=== PATIENT | male | born 1960 | race African-American/Black ===

== ENCOUNTER 2016-09-03 22:13 | Observation (INO) | payer SELFPAY ==
[~2016-09-03] VITALS: Ht 180.3 cm; Wt 114.0 kg
[~2016-09-03 22:13] MED LIST: ALBU6.7H INH; AMOX875T PO; CHLO.12%30 SSP; LISI30TA44 PO; PRED20 PO; TRAM50 PO
[2016-09-03 22:17] VITALS: BP_SYST 213; BP_SYST 228; BP_DIAS 128; BP_DIAS 143; PULSE 94; RESP 18; TEMP 98.6; O2SAT 99
[2016-09-03] MEDS ORDERED: LISI-515 PO (22:35)
[2016-09-03] MEDS ORDERED: ASPIRIN 81 MG CHEW TAB PO ONE (22:45)
[2016-09-03] MEDS ORDERED: SODIUM CHLORIDE 0.9% FLUSH 5 ML FLUSH IVF PRN (22:45)
[2016-09-03] MEDS ORDERED: NITROGLYCERIN 2% OINT 1 GM PACKET TOP ONE (22:45)
--- NOTE | 2016-09-03 23:01 | RADRPT ---
EXAM DATE/TIME: 09/03/2016 22:47 [facility] COMPARISON: No previous studies available for comparison. INDICATIONS : Left side chest pain and left arm numbness since yesterday. MEDICAL HISTORY : None. SURGICAL HISTORY : None. ENCOUNTER: Initial ACUITY: 2 days PAIN SCORE: 4/10 LOCATION: Left chest FINDINGS: The lungs are underaerated but clear. Heart and pulmonary vascularity are normal. Portion of the rosie ny skeleton visualized is unremarkable. CONCLUSION: Underaerated otherwise negative. Sebas Patino MD FACR on September 03, 2016 at 22:55 Board Certified Radiologist. This report was verified electronically.
--- NOTE | 2016-09-03 23:02 | PD ---
HPI Chief Complaint: Cardiac Complaint Time Seen by Provider: 22:25 Travel History International Travel<30 days: No Contact w/Intl Traveler<30days: No Traveled to known affect area: No History of Present Illness HPI The patient is a 56 year old male who presents to the [facility] emergency department with a history of left hand numbness associated with a tightening sensation in the left arm that began this morning. He reports that the aching sensation seemed to move around into his left shoulder and then even into his left sole of his foot. The patient reports that the left shoulder pain seemed to radiate up into the left side of his back. The patient denies having any associated shortness of breath. The patient reports that he does have a history of hypertension. He denies having any known history of hyperlipidemia or tobacco use. The patient is followed by a primary care physician that he cannot recall the name of. He reports that he last had a stress test done 3 years ago in [place]. He denies having any history of coronary artery disease. The patient denies having any weakness in his extremities. He denies having any headache. He denies having any diaphoresis or nausea associated with this. The patient denies any recent fevers, cough, congestion, chest pain, shortness of breath, abdominal pain, vomiting, diarrhea, urinary symptoms, or neurologic symptoms. [facility] Past Medical History Narrative Medical The patient's past medical history is significant for chronic back pain with bilateral intermittent sciatica, hypertension. Hypertension: Yes Tetanus Vaccination: Unknown Influenza Vaccination: No Past Surgical History Narrative Surgical The patient's past surgical history is significant for a right Achilles tendon repair. Surgical History: No Previous Surgery Social History Alcohol Use: No Tobacco Use: No Substance Use: No Allergies-Medications (Allergen,Severity, Reaction): Coded Allergies: No Known Allergies (Unverified , 09/03/16) Reported Meds & Prescriptions Reported Meds & Active Scripts Active Reported Lisinopril 20 Mg Tab 20 Mg PO BID Review of Systems Except as stated in HPI: all other systems reviewed are Neg General / Constitutional: No: Fever Eyes: No: Visual changes HENT: Positive: Neck Pain, No: Headaches, Rhinorrhea, Congestion, Neck Stiffness Cardiovascular: No: Chest Pain or Discomfort Respiratory: No: Cough, Shortness of Breath Gastrointestinal: No: Nausea, Vomiting, Diarrhea, Abdominal Pain, Changes in Bowel Habits, Indigestion, Loss of Appetite Genitourinary: No: Dysuria Musculoskeletal: Positive: Myalgias, Pain Skin: No Rash Neurologic: Positive: Sensory Disturbance (left hand), No: Weakness, Focal Abnormalities, Coordination Problem, Change in Mentation, Slurred Speech Psychiatric: No: Depression Endocrine: No: Polydipsia Hematologic/Lymphatic: No: Easy Bruising Physical Exam Narrative General: The patient is a well-developed well-nourished male in no acute distress. Head and Neck exam: Head is normocephalic atraumatic. Eyes: EOMI, pupils are equal round and reactive to light. Nose: Midline septum with pink mucous membranes Mouth: Dentition unremarkable. Moist mucus membranes. Posterior oropharynx is not erythematous. No tonsillar hypertrophy. Uvula midline. Airway patent. Neck: No palpable lymphadenopathy. No nuchal rigidity. No thyromegaly. Cardiovascular: Regular rate and rhythm without murmurs, gallops, or rubs. No pulse deficit to the extremities and simultaneous auscultation and palpation of his radial artery. Lungs: Clear to auscultation bilaterally. No wheezes, rhonchi, or rales. Abdomen: Soft, without tenderness to palpation in all 4 quadrants of the abdomen. No guarding, rebound, or rigidity. Normal bowel sounds are audible. Extremities: No clubbing, cyanosis, or edema. 2+ pulses in all 4 extremities. No calf tenderness on palpation. Back: No spinous process tenderness to palpation. No costovertebral angle tenderness to palpation. Neurologic Exam: Cranial nerves 2-12 were intact on exam. Strength is 5/5 in all 4 extremities. No sensory deficits noted on examination currently. Skin Exam: No rash noted. Intact skin that is warm and dry. Data Data Last Documented VS Vital Signs Date Time Temp Pulse Resp B/P Pulse Ox O2 Delivery O2 Flow Rate FiO2 09/03/16 23:14 95 16 161/101 98 Room Air 09/03/16 22:17 98.6 Orders Electrocardiogram (09/03/16 22:35) B-Type Natriuretic Peptide (09/03/16 22:35) Ckmb (Isoenzyme) Profile (09/03/16 22:35) Complete Blood Count With Diff (09/03/16 22:35) Comprehensive Metabolic Panel (09/03/16 22:35) Magnesium (Mg) (09/03/16 22:35) Prothrombin Time / Inr (Pt) (09/03/16 22:35) Act Partial Throm Time (Ptt) (09/03/16 22:35) Troponin I (09/03/16 22:35) Lipase (09/03/16 22:35) Chest, Single Ap (09/03/16 22:35) Ecg Monitoring (09/03/16 22:35) Bilateral Bp Monitoring (09/03/16 22:35) Iv Access Insert/Monitor (09/03/16 22:35) Oximetry (09/03/16 22:35) Oxygen Administration (09/03/16 22:35) Aspirin Chew (Aspirin Chew) (09/03/16 22:45) Nitroglycerin 2% Oint (Nitroglycerin 2% (09/03/16 22:45) Sodium Chloride 0.9% Flush (Ns Flush) (09/03/16 22:45) Nitroglycerin Sl (Nitrostat Sl) (09/03/16 22:45) Ct Brain W/O Iv Contrast(Rout) (09/03/16 22:35) Ct Cerv Spine W/O Contrast (09/03/16 22:46) CKMB (09/03/16 23:00) CKMB% (09/03/16 23:00) Place In Observation (09/04/16 00:05) Activity Bed Rest With Brp (09/04/16 00:05) Vital Signs (Adult) Q4H (09/04/16 00:05) Cardiac Rhythm .As Directed (09/04/16 00:05) ^ Notify Dr: Other .PRN (09/04/16 00:05) ^ Notify Dr. Parameters (09/04/16 00:05) Resp Oxygen Nasal Cannula (09/04/16 ) Ckmb (Isoenzyme) Profile (09/04/16 02:00) Ckmb (Isoenzyme) Profile (09/04/16 05:00) Troponin I (09/04/16 02:00) Troponin I (09/04/16 05:00) Electrocardiogram (09/04/16 02:00) Electrocardiogram (09/04/16 05:00) ^ Obtain (09/04/16 00:05) Sodium Chloride 0.9% Flush (Ns Flush) (09/04/16 00:15) Sodium Chloride 0.9% Flush (Ns Flush) (09/04/16 09:00) Acetaminophen (Tylenol) (09/04/16 00:15) Pantoprazole (Protonix) (09/04/16 09:00) Lisinopril (Prinivil) (09/04/16 09:00) Nitroglycerin 2% Oint (Nitroglycerin 2% (09/04/16 06:00) Aspirin (Aspirin) (09/04/16 09:00) Admit Order (Ed Use Only) (09/04/16 00:05) Labs Laboratory Tests Test 09/03/16 23:00 White Blood Count 7.9 TH/MM3 Red Blood Count 5.10 MIL/MM3 Hemoglobin 13.7 GM/DL Hematocrit 41.3 % Mean Corpuscular Volume 81.0 FL Mean Corpuscular Hemoglobin 26.9 PG Mean Corpuscular Hemoglobin 33.1 % Concent Red Cell Distribution Width 15.7 % Platelet Count 266 TH/MM3 Mean Platelet Volume 9.0 FL Neutrophils (%) (Auto) 59.0 % Lymphocytes (%) (Auto) 30.9 % Monocytes (%) (Auto) 7.2 % Eosinophils (%) (Auto) 2.1 % Basophils (%) (Auto) 0.8 % Neutrophils # (Auto) 4.7 TH/MM3 Lymphocytes # (Auto) 2.4 TH/MM3 Monocytes # (Auto) 0.6 TH/MM3 Eosinophils # (Auto) 0.2 TH/MM3 Basophils # (Auto) 0.1 TH/MM3 CBC Comment DIFF FINAL Differential Comment Prothrombin Time 10.7 SEC Prothromb Time International 1.0 RATIO Ratio Activated Partial 29.2 SEC Thromboplast Time Sodium Level 141 MEQ/L Potassium Level 3.6 MEQ/L Chloride Level 106 MEQ/L Carbon Dioxide Level 28.8 MEQ/L Blood Urea Nitrogen 13 MG/DL Creatinine 1.25 MG/DL Random Glucose 122 MG/DL Calcium Level 8.6 MG/DL Magnesium Level 2.2 MG/DL Total Bilirubin 0.2 MG/DL Aspartate Amino Transf 25 U/L (AST/SGOT) Alanine Aminotransferase 29 U/L (ALT/SGPT) Alkaline Phosphatase 85 U/L B-Type Natriuretic Peptide 22 PG/ML Total Protein 8.1 GM/DL Albumin 3.4 GM/DL Anion Gap 6 MEQ/L Estimat Glomerular Filtration 72 ML/MIN Rate Total Creatine Kinase 293 U/L Creatine Kinase MB 0.9 NG/ML Troponin I 0.03 NG/ML Lipase 138 U/L MDM Medical Decision Making Medical Screen Exam Complete: Yes Emergency Medical Condition: Yes Medical Record Reviewed: Yes Interpretation(s) Last Impressions Head CT 09/03/16 2235 Signed Impressions: Service Date/Time: Saturday, September 03, 2016 23:18 - CONCLUSION: No acute intracranial findings. Mario Schroeder MD Differential Diagnosis TIA, versus intracranial mass, versus intracranial hemorrhage, versus acute coronary syndrome, versus aortic dissection, versus neuropathy, versus carpal tunnel syndrome, versus cervical radiculopathy Narrative Course During the course of the patients emergency department visit, the patients history, examination, and differential diagnosis were reviewed with the patient. The patient had IV access obtained and blood work sent for analysis. The patient was placed on a manager cardiac with oximetry and blood pressure monitoring. An EKG was done on arrival. The patient's EKG shows a sinus rhythm heart rate of 90, no acute ST segment elevation, however there is acute noted in lead 1 and aVL, nonspecific ST segment downsloping in lead [address] scan of the head and neck was ordered. The patient will have a chest x- ray ordered. The patient was provided nitroglycerin sublingual 3 every 5 minutes when necessary pain, nitroglycerin 1 inch the chest wall was provided. The patient was given aspirin 324 mg by mouth 1. On reexamination the patient's left hand tingling and aching had improved. The patient's blood pressure was down to 160/90 The patients laboratory studies were reviewed and remarkable for a white count of 7.9, hemoglobin 13.7, platelets 266 with a normal differential. CMP is remarkable for a glucose of 122, initial set of cardiac enzymes are negative, BNP 22, lipase 138, PT PTT unremarkable. Radiology studies were reviewed and remarkable for a chest x-ray that shows no acute abnormality. CT scan of the brain shows no acute abnormality. The patients results were discussed with the patient, including the plan of care. I explained that further testing and/ or monitoring is indicated based on the patients history, examination, and/ or laboratory findings. Therefore, I recommended admission for additional evaluation. The patient expressed understanding and was agreeable with this plan. The patient was admitted to the hospital in stable condition and sent to a bed under the care of the chest pain center. Diagnosis Primary Impression: Chest pain, rule out acute myocardial infarction Additional Impression: Poorly-controlled hypertension Admitting Information Admitting Physician Requests: Su Bertrand MD Sep 03, 2016 23:02
[2016-09-03 23:05] VITALS: BP_SYST 211; BP_SYST 242; BP_DIAS 122; BP_DIAS 123
[2016-09-03] MEDS: NITROGLYCERIN 0.4 MG SL 25 TABS/BTL SL SCH ×2 (23:12→23:35)
[2016-09-03 23:14] VITALS: BP 161/101; PULSE 95; RESP 16; O2SAT 98
[2016-09-03 23:17] LABS: AUTOMATED NEUTROPHIL # 4.7 TH/MM3 (1.8-7.7); BASOPHIL # 0.1 TH/MM3 (0-0.2); BASOPHIL % 0.8 % (0.0-2.0); EOSINOPHIL # 0.2 TH/MM3 (0-0.4); EOSINOPHIL % 2.1 % (0.0-4.0); HEMATOCRIT 41.3 % (39.0-51.0); HEMO FLAGS DIFF FINAL; LYMPH % 30.9 % (9.0-44.0); LYMPHOCYTE # 2.4 TH/MM3 (1.0-4.8); MEAN CORPUSCULAR HEMOGLOBIN 26.9 PG (27.0-34.0); MEAN CORPUSCULAR HGB CONC 33.1 % (32.0-36.0); MONO % 7.2 % (0.0-8.0); PLATELET COUNT 266 TH/MM3 (150-450); RED CELL DISTRIBUTION WIDTH 15.7 % (11.6-17.2); WHITE BLOOD COUNT 7.9 TH/MM3 (4.0-11.0)
[2016-09-03 23:26] LABS: APTT (PATIENT) 29.2 SEC (24.3-30.1); PROTHROMBIN TIME - PATIENT 10.7 SEC (9.8-11.6)
--- NOTE | 2016-09-03 23:47 | RADRPT ---
EXAM DATE/TIME: 09/03/2016 23:18 [facility] COMPARISON: No previous studies available for comparison. INDICATIONS : Numbness in left hand today. RADIATION DOSE: 56.35 CTDIvol (mGy) MEDICAL HISTORY : Hypertension. SURGICAL HISTORY : None. ENCOUNTER: Initial ACUITY: 1 day PAIN SCALE: 1/10 LOCATION: Left arm TECHNIQUE: Multiple contiguous axial images were obtained of the head. Using automated exposure control and adj ustment of the mA and/or kV according to patient size, radiation dose was kept as low as reasonably a chievable to obtain optimal diagnostic quality images. 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 There is patchy minimal diminished attenuation i n deep white matter, likely chronic ischemic in etiology. There is no evidence of intracranial mass o r hemorrhage. There is nothing to suggest acute infarction. Extracranial structures are benign and in tact. CONCLUSION: No acute intracranial findings. Mario Schroeder MD on September 03, 2016 at 23:42 Board Certified Radiologist. This report was verified electronically.
[2016-09-03 23:49] LABS: ALKALINE PHOSPHATASE 85 U/L (45-117); ALT (GPT) 29 U/L (12-78); ANION GAP 6 MEQ/L (5-15); AST (GOT) 25 U/L (15-37); BICARBONATE 28.8 MEQ/L (21.0-32.0); BLOOD UREA NITROGEN 13 MG/DL (7-18); CHLORIDE 106 MEQ/L (98-107); CREATINE KINASE 293 U/L (39-308); GLOMERULAR FILTRATION RATE 72 ML/MIN (>89); MAGNESIUM 2.2 MG/DL (1.5-2.5); POTASSIUM 3.6 MEQ/L (3.5-5.1); SODIUM (NA) 141 MEQ/L (136-145); TOTAL BILIRUBIN ADULT 0.2 MG/DL (0.2-1.0)
--- NOTE | 2016-09-03 23:57 | RADRPT ---
EXAM DATE/TIME: 09/03/2016 23:18 [facility] COMPARISON: No previous studies available for comparison. INDICATIONS : Numbness in left hand today. RADIATION DOSE: 35.42 CTDIvol (mGy) MEDICAL HISTORY : Hypertension. SURGICAL HISTORY : None. ENCOUNTER: Initial ACUITY: 1 day PAIN SCALE: 1/10 LOCATION: Left arm TECHNIQUE: Volumetric scanning of the cervical spine was performed. Multiplanar reconstructions in the sagittal, coronal and oblique axial planes were performed. Using automated exposure control and adjustment o f the mA and/or kV according to patient size, radiation dose was kept as low as reasonably achievable to obtain optimal diagnostic quality images. FINDINGS: The alignment is normal. There is no evidence of cervical spine fracture. No bony canal or foraminal stenosis is identified. There is no evidence of paraspinal hematoma. CONCLUSION: No acute bony injury in the cervical spine. Mario Schroeder MD on September 03, 2016 at 23:53 Board Certified Radiologist. This report was verified electronically.
[2016-09-04] VITALS (8 sets, daily range): BP systolic 147–208; BP diastolic 71–101; PULSE 59–84; RESP 16–19; O2SAT 96–99
[2016-09-04] MEDS: NITROGLYCERIN 0.4 MG SL 25 TABS/BTL SL SCH
[2016-09-04 00:02] LABS: CKMB 0.9 NG/ML (0.5-3.6)
[2016-09-04] MEDS ORDERED: SODIUM CHLORIDE 0.9% FLUSH 5 ML FLUSH IVF PRN (00:15)
[2016-09-04] MEDS ORDERED: ACETAMINOPHEN 500 MG CPLT PO PRN (00:15)
[2016-09-04 02:49] LABS: CREATINE KINASE 228 U/L (39-308)
[2016-09-04 03:01] LABS: CKMB 0.8 NG/ML (0.5-3.6)
[2016-09-04 05:51] LABS: CREATINE KINASE 220 U/L (39-308)
[2016-09-04 06:03] LABS: CKMB 0.8 NG/ML (0.5-3.6)
[2016-09-04] MEDS: NITROGLYCERIN 2% OINT 1 GM PACKET TOP SCH ×2 (06:23→12:00)
[2016-09-04] MEDS ORDERED: ASPIRIN 325 MG TAB PO SCH (09:00)
[2016-09-04] MEDS ORDERED: PANTOPRAZOLE SOD 40 MG DELAYED RELEASE TAB PO SCH (09:00)
[2016-09-04] MEDS ORDERED: LISINOPRIL 10 MG TAB PO SCH (09:00)
[2016-09-04] MEDS ORDERED: amLODIPine BESYLATE 5 MG TAB PO SCH (09:00)
[2016-09-04] MEDS ORDERED: SODIUM CHLORIDE 0.9% FLUSH 5 ML FLUSH IVF SCH (09:00)
--- NOTE | 2016-09-04 10:17 | MH ---
cc: GRIFFIN ROLDAN MD DATE OF ADMISSION: 09/04/2016 DATE OF 1960 CHIEF COMPLAINT Left hand numbness and left shoulder pain. HISTORY OF PRESENT ILLNESS This is a 56-year-old male who presented to the ED with the complaint of discomfort radiating down his left neck into the arm. He states the left hand at times feels a little bit numb and tingly. He denies weakness in the extremity. He states that the discomfort seems also then to radiate down into his leg. He cannot recall any trauma. He denies any type of chest discomfort. The shoulder discomfort is described as an ache. It is worsened at times with movement. He denies history of CAD. Denies recent illnesses. It was found that his blood pressure was quite elevated in the ER with a systolic of 222. He states he had not taken his blood pressure medicine last evening. He does have a primary care physician but cannot recall his name. PAST MEDICAL HISTORY 1. Hypertension. 2. Chronic back pain. Denies hyperlipidemia, diabetes and CAD. FAMILY HISTORY Denies family history of CAD. SOCIAL HISTORY He is a nonsmoker and denies alcohol or illicit drugs. SURGICAL HISTORY Noncontributory. ALLERGIES No known drug allergies. MEDICATIONS Lisinopril 20 mg b.i.d. REVIEW OF SYSTEMS GENERAL: Denies fevers or chills. Denies recent illnesses. HEENT: Denies headache, earache, sore throat, difficulty swallowing. CARDIOVASCULAR: Denies chest discomfort. Denies diaphoresis. Denies sensation of heart beating rapidly or irregularly. No syncope. RESPIRATORY: Denies shortness of breath or inspirational chest discomfort. Denies coughing, wheezing or hemoptysis. GI: Denies nausea, vomiting, diarrhea, abdominal pain or blood in the stool. MUSCULOSKELETAL: Complains of discomfort left side of his neck, radiating down his left arm, shoulder discomfort and down, feels like an achy discomfort. He also states that the pain will shoot down from his arm, will shoot down through his torso and down to his leg to the full of his foot. Denies calf pain or swelling. NEUROVASCULAR: Denies headache or dizziness. A complained of a tingling, numbness sensation to his left hand. He describes the discomfort radiating from his neck down to his arm and into his leg. He again denies weakness in extremities. Denies visual changes. Denies any difficulty with speaking. ENDOCRINE: Denies polyuria or polydipsia. HEMATOLOGIC: Denies easy bruising. SKIN: Denies rash or itching. PHYSICAL EXAMINATION VITAL SIGNS: In the emergency initially included a blood pressure of 213/120, heart rate was 94, respirations 18, pulse oximetry 98% on room air and he was afebrile. Most recent vital signs include a blood pressure of 158/85, heart 71, respirations 18, pulse oximetry 96% on room air. His highest systolic reading was 242. He was given nitroglycerin in the ER which did help his blood pressure somewhat. GENERAL: The patient is seen in the examination room in no apparent distress. He is very pleasant. He speaks in clear and complete sentences. HEENT: Head is atraumatic and normocephalic. NECK: Supple without lymphadenopathy and trachea is midline. No JVD or carotid bruits. CARDIOVASCULAR: Regular rate and rhythm, without murmur, gallop or rub. RESPIRATORY: Lungs are clear to auscultation bilaterally. No wheezing, rales or rhonchi. No use of accessory muscles. No reproducible chest wall discomfort. GI: Abdomen is nontender. Bowel sounds are normal. MUSCULATURE: Patient moving upper and lower extremities freely. There is discomfort with flexion and extension of the cervical, thoracic and lumbar spine. No spinous process point tenderness involving the cervical, thoracic or lumbar spine. A little bit of the pain with range of motion of his left shoulder. Moving all extremities freely. No calf tenderness or edema, no Homans' sign. Strong pulses in upper and lower extremities. NEUROVASCULAR: Cranial II through XII are grossly intact. No focal deficits and speech is clear. He has strong professor of apologetics strength bilaterally. SKIN: No rashes. Turgor is normal. LABORATORY DATA CBC is unremarkable. Coagulation studies unremarkable. A complete metabolic panel has the glucose mildly elevated at 122 and GFR decreased below 72, otherwise unremarkable. Serial cardiac enzymes are normal at 0.03, 0.05, and 0.04. Lipase normal at 138. RADIOLOGIC STUDIES Single view chest x-ray has been read by the radiologist as under-aerated, otherwise negative. A CT brain obtained through the ER and read by the radiologist as no acute intracranial findings. A CT of the C-spine obtained through the emergency room and read by the radiologist as no acute bony injury in the cervical spine. Alignment was normal. EKGS Sinus rhythm without significant ST-segment depression or elevation. ASSESSMENT AND PLAN 1. Atypical chest pain: The patient denies chest pain but was complaining of a shoulder discomfort. He has had serial cardiac enzymes and EKGs for ruling out purposes. He has been seen by Dr. Roldan of Cardiology in the [facility]. He will undergo a Lexiscan myocardial perfusion stress test and, if that were to be unremarkable, he will be discharged home with instructions to follow up with a local physician. After discharge he will need to follow with his physician to further evaluate possible radiculopathy causing his discomfort. 2. Hypertension: The patient's blood pressure was quite high. We will resume his lisinopril and add amlodipine. He is to follow back up with his physician to evaluate his pressures. The patient is agreeable to this plan. He is stable at this time. Dictated by: Salomón Hester PA-C Mariusz Vang/CHARMAINE /8:49 AM /10:01 AM
[2016-09-04] MEDS ORDERED: REGADENOSON INJ 0.4 MG/5 ML SYR ONE (10:49)
--- NOTE | 2016-09-04 11:57 | RADRPT ---
EXAM DATE/TIME: 09/04/2016 10:17 [facility] COMPARISON: No previous studies available for comparison. INDICATIONS : Left hand pain radiating up the left arm in to left shoulder and back. Angina. DOSE: 35 mCi Tc99m Myoview at stress. 11 mCi Tc99m Myoview at rest. 0.4 mg Lexiscan STRESS SYMPTOMS: Lightheaded and nausea. EJECTION FRACTION: 50% MEDICAL HISTORY : Hypertension. SURGICAL HISTORY : None. ENCOUNTER: Initial ACUITY: 1 day PAIN SCALE: 5/10 LOCATION: Left Arm, shoulder and back. TECHNIQUE: The patient underwent pharmacologic stress with infusion of prescribed dose. Continuous ECG tracing was monitored during stress. Gated SPECT imaging was performed after stress and conventional SPECT i maging was performed at rest. The examination was performed on a SPECT/CT scanner, both attenuation and non-corrected datasets were reviewed. FINDINGS: DISTRIBUTION: The maximum perfused segment at stress is in the septal wall. PERFUSION STUDY: The pattern of perfusion at stress is within normal limits. GATED STUDY: There is intact wall motion and thickening without hypokinetic or dyskinetic segments. CONCLUSION: Unremarkable myocardial perfusion examination RISK CATEGORY: Low Joni Dominguez MD on September 04, 2016 at 11:53 Board Certified Radiologist. This report was verified electronically.
[2016-09-04] MEDS ORDERED: cloNIDine HCL 0.2 MG TAB PO ONE (12:15)
--- NOTE | 2016-09-04 12:27 | HHI.DCPOC ---
Discharge Care Plan Diagnosis: (1) Chest pain (2) Hypertension Goals to Promote Your Health * To prevent worsening of your condition and complications * To maintain your health at the optimal level Directions to Meet Your Goals Take your medications as prescribed Follow your dietary instruction Follow activity as directed Keep your appointments as scheduled Take your immunizations and boosters as scheduled If your symptoms worsen call your PCP, if no PCP go to Urgent Care Center or Emergency Room Smoking is Dangerous to Your Health. Avoid second hand smoke Call the 24-hour hour crisis hotline for domestic abuse at Edinson Hester Sep 04, 2016 12:27
--- NOTE | 2016-09-04 13:23 | TR ---
Date Performed: 09/04/2016 Time Performed: 10:55:28 DOCTOR: Sandy Clark DRUG LIST: CLINICAL HISTORY: CHEST PAIN REASON FOR TEST: CHEST PAIN REASON FOR ENDING: OBSERVATION: CONCLUSION: Lexiscan stress test was performed under standard four minute protocol. Radionuclid e was injected one minute prior to ending the test. No electrocardiographic abormalities were present to suggest ischemia. Nuclear imaging and interpretation are pending. COMMENTS:
--- NOTE | 2016-09-04 13:26 | EKG ---
Date Performed: 09/04/2016 Time Performed: 05:02:37 PTAGE: 56 years EKG: Sinus rhythm NORMAL ECG Since PREVIOUS TRACING , no significant change noted PREVIOUS TRACIN09/04/2016 02.18 DOCTOR: Sandy Clark Interpretating Date/Time 09/04/2016 13:25:36
--- NOTE | 2016-09-04 13:27 | EKG ---
Date Performed: 09/03/2016 Time Performed: 22:27:28 PTAGE: 56 years EKG: Sinus rhythm POSSIBLE LATERAL MYOCARDIAL INFARCTION BORDERLINE ECG DOCTOR: Sandy Clark Interpretating Date/Time 09/04/2016 13:26:31
--- NOTE | 2016-09-04 13:27 | EKG ---
Date Performed: 09/04/2016 Time Performed: 02:18:24 PTAGE: 56 years EKG: SINUS BRADYCARDIA NONSPECIFIC ST & T-WAVE ABNORMALITY BORDERLINE ECG Since PREVIOUS TRACING , no significant change noted PREVIOUS TRACIN09/03/2016 22.27 DOCTOR: Sandy Calrk Interpretating Date/Time 09/04/2016 13:26:07
[2016-09-05 15:54] VITALS: O2SAT 96
[2016-09-07 07:51] VITALS: O2SAT 96
== END 2016-09-04 14:14 | disposition home or self-care (01) ==
LOC: NEPE 22:13 → NEDA 09-04 00:09 → NEDH 09-04 04:13
PROVIDERS: ADMIT Internal Medicine Interventional Cardiology; ATTEND Internal Medicine Interventional Cardiology
DX: R07.89 Other chest pain (principal); I10 Essential (primary) hypertension; M25.512 Pain in left shoulder; M79.602 Pain in left arm; M54.9 Dorsalgia, unspecified; G89.29 Other chronic pain; M54.32 Sciatica, left side; M54.31 Sciatica, right side; Z79.899 Other long term (current) drug therapy; R00.1 Bradycardia, unspecified
CPT/HCPCS: 70450; 71010; 72125; 78452; 80053; 82550; 82552; 83690; 83735; 83880; 84484; 85025; 85610; 85730; 93005; 93017; 99285; A9502; G0378; J2785

== ENCOUNTER 2017-05-06 22:28 | Emergency (ER) | payer SELFPAY ==
[~2017-05-06] VITALS: Ht 182.9 cm; Wt 111.0 kg
[~2017-05-06 22:28] MED LIST changes: -ALBU6.7H INH; -AMOX875T PO; -CHLO.12%30 SSP; +LISI-515 PO; -LISI30TA44 PO; -PRED20 PO; -TRAM50 PO
[2017-05-06 22:32] VITALS: BP_SYST 158; BP_SYST 209; BP_DIAS 123; BP_DIAS 131; PULSE 77; RESP 18; TEMP 98.3; O2SAT 99
[2017-05-06 23:00] VITALS: BP_SYST 186; BP_SYST 204; BP_DIAS 102; BP_DIAS 92
[2017-05-06] MEDS ORDERED: LISINOPRIL 20 MG TAB PO ONE (23:30)
[2017-05-06] MEDS ORDERED: hydrALAZINE HCL 20 MG/ML VIAL IV PUSH ONE (23:30)
--- NOTE | 2017-05-06 23:38 | PD ---
HPI Chief Complaint: Hypertension Time Seen by Provider: 23:18 Travel History International Travel<30 days: No Contact w/Intl Traveler<30days: No Traveled to known affect area: No History of Present Illness HPI Patient is a 56-year-old male who presents to emergency room with complaints of hypertension. Patient reports that he has not been taking lisinopril 20 milligrams for the past 2 weeks as he has recently changed insurance companies. Patient reports that today, he had frontal headache as well as increased pressure to his head. Patient reports that he checked his blood pressure and was noted to be high. Patient presents the emergency room for refill on his antihypertensives. Patient at this time reports complete resolution of headache , denies any vision changes, denies any nausea or vomiting. Patient denies any chest pain or shortness of breath. Patient reports that he did have a sharp pain to his left arm -reports no pain at this time. Patient adamantly denies chest pain. Patient reports that he is feeling fine at this time and is only here in the ER for refills on his medications. [facility] Past Medical History Diminished Hearing: No Hypertension: Yes Tetanus Vaccination: Unknown Past Surgical History Surgical History: No Previous Surgery Social History Alcohol Use: No Tobacco Use: No Substance Use: No Allergies-Medications (Allergen,Severity, Reaction): Coded Allergies: No Known Allergies (Unverified , 05/06/17) Reported Meds & Prescriptions Reported Meds & Active Scripts Active Reported Lisinopril 20 Mg Tab 20 Mg PO BID Review of Systems General / Constitutional: No: Fever Eyes: No: Visual changes HENT: No: Headaches, Vertigo, Lightheadedness, Sore Throat, Rhinitis, Rhinorrhea, Neck Pain Cardiovascular: No: Chest Pain or Discomfort, Palpitations, Irregular Rhythm, Tachycardia Respiratory: No: Shortness of Breath Gastrointestinal: No: Abdominal Pain Genitourinary: No: Dysuria Musculoskeletal: No: Pain Skin: No Rash Neurologic: No: Weakness Psychiatric: No: Depression Endocrine: No: Polydipsia Hematologic/Lymphatic: No: Easy Bruising Physical Exam Narrative GENERAL: NAD, Nontoxic SKIN: Focused skin assessment warm/dry. HEAD: Atraumatic. Normocephalic. EYES: Pupils equal and round. No scleral icterus. No injection or drainage. ENT: No nasal bleeding or discharge. Mucous membranes pink and moist. NECK: Trachea midline. No JVD. CARDIOVASCULAR: Regular rate and rhythm. No murmur appreciated. RESPIRATORY: No accessory muscle use. Clear to auscultation. Breath sounds equal bilaterally. GASTROINTESTINAL: Abdomen soft, non-tender, nondistended. Hepatic and splenic margins not palpable. MUSCULOSKELETAL: No obvious deformities. No clubbing. No cyanosis. No edema. NEUROLOGICAL: Awake and alert. No obvious cranial nerve deficits. Motor grossly within normal limits. Normal speech. CN 2-12 grossly intact with no neurological deficits PSYCHIATRIC: Appropriate mood and affect; insight and judgment normal. Data Data Last Documented VS Vital Signs Date Time Temp Pulse Resp B/P (MAP) Pulse Ox O2 Delivery O2 Flow Rate FiO2 05/07/17 00:42 64 15 149/70 (96) 100 Room Air 05/06/17 22:32 98.3 Orders Orders Basic Metabolic Panel (Bmp) (05/06/17 23:25) Ecg Monitoring (05/06/17 23:25) Iv Access Insert/Monitor (05/06/17 23:25) Oximetry (05/06/17 23:25) Hydralazine Inj (Apresoline Inj) (05/06/17 23:30) Lisinopril (Prinivil) (05/06/17 23:30) Labs Laboratory Tests Test 05/06/17 23:53 Blood Urea Nitrogen 12 MG/DL Creatinine 1.34 MG/DL Random Glucose 113 MG/DL Calcium Level 8.3 MG/DL Sodium Level 139 MEQ/L Potassium Level 3.6 MEQ/L Chloride Level 105 MEQ/L Carbon Dioxide Level 30.2 MEQ/L Anion Gap 4 MEQ/L Estimat Glomerular Filtration Rate 66 ML/MIN [facility] Medical Decision Making Medical Screen Exam Complete: Yes Emergency Medical Condition: Yes Medical Record Reviewed: Yes Interpretation(s) EKG at 2252: NSR at 68bpm, qt/qtc: 394/[address] changes, (EKG similar to EKG from 09/04/16) Vital Signs Date Time Temp Pulse Resp B/P (MAP) Pulse Ox O2 Delivery O2 Flow Rate FiO2 05/06/17 23:00 204/102 (136) 05/06/17 23:00 186/92 (123) 05/06/17 22:47 98 05/06/17 22:32 98.3 77 18 209/123 (151) 99 158/131 (140) Differential Diagnosis Differential includes hypertension, end organ damage, medication noncompliance Narrative Course 56-year-old male who presents to emergency room complaints of hypertension. he has not taken his lisinopril 20 mg for 2 weeks as he has run out of his medication. Patient here for refill on his medication. BMP ordered to evaluate for end organ damage. Will give him a dose of lisinopril in the ER as well as a script. Patient will follow up with pcp for further scripts. Vital Signs Date Time Temp Pulse Resp B/P (MAP) Pulse Ox O2 Delivery O2 Flow Rate FiO2 05/07/17 00:42 64 15 149/70 (96) 100 Room Air 05/07/17 00:20 100 Room Air 05/07/17 00:00 67 15 170/87 (114) 97 05/06/17 23:00 204/102 (136) 05/06/17 23:00 186/92 (123) 05/06/17 22:47 98 05/06/17 22:32 98.3 77 18 209/123 (151) 99 158/131 (140) CBC & BMP Diagram 05/06/17 23:53 Calcium Level 8.3 L BP now 149/70, I reviewed all studies with patient in detail. he will follow up with his pcp and will return to ER as needed. patient understands importance of medication compliance Diagnosis Primary Impression: Hypertension Qualified Codes: I10 - Essential (primary) hypertension Patient Instructions: General Instructions Additional Instructions: Please follow up with your primary care doctor Return to ER as needed Please take all medications as prescribed Med/Other Pt SpecificInfo: Prescription(s) given Scripts Lisinopril (Lisinopril) 20 Mg Tab 20 MG PO DAILY, #30 TAB 0 Refills Prov: Essie Driver DO 05/07/17 Disposition: 01 DISCHARGE HOME Condition: Stable Essie Driver DO May 06, 2017 23:38
[2017-05-07] VITALS: BP 170/87; PULSE 67; RESP 15; O2SAT 97
[2017-05-07 00:20] VITALS: O2SAT 100
[2017-05-07 00:20] LABS: BICARBONATE 30.2 MEQ/L (21.0-32.0); POTASSIUM 3.6 MEQ/L (3.5-5.1)
[2017-05-07 00:42] VITALS: BP 149/70; PULSE 64; RESP 15; O2SAT 100
[2017-05-07] MEDS ORDERED: LISI-515 PO (01:03)
[2017-05-07 01:25] VITALS: BP 166/66
--- NOTE | 2017-05-07 20:48 | EKG ---
Date Performed: 05/06/2017 Time Performed: 22:52:25 PTAGE: 56 years EKG: Sinus rhythm MODERATE ST DEPRESSION ABNORMAL ECG PREVIOUS TRACING : 09/04/2016 05.02 Compared to prior tracing no significant change DOCTOR: Claus Castro Interpretating Date/Time 05/07/2017 20:44:38
== END 2017-05-07 01:26 | disposition home or self-care (01) ==
LOC: EDBD 22:28 → NEPC 22:28
DX: I10 Essential (primary) hypertension (principal); R94.31 Abnormal electrocardiogram [ECG] [EKG]
CPT/HCPCS: 80048; 93005; 96374; 99284; J0360